=== PATIENT | male | born 1995 | race Caucasian/White ===

== ENCOUNTER 2019-01-18 17:16 | Emergency (ER) | payer SELFPAY | END 2019-01-18 19:48 | disposition left against medical advice (07) | LOC: ED 17:16 | DX: Z53.21 Procedure and treatment not carried out due to patient leaving prior to being seen by health care provider (principal) ==

== ENCOUNTER 2019-01-19 09:57 | Emergency (ER) | payer SELFPAY ==
[~2019-01-19] VITALS: Ht 172.7 cm; Wt 81.2 kg
[2019-01-19 10:18] VITALS: BP 151/100; Ht 172.7 cm; Wt 81.2 kg
[2019-01-19 13:33] LABS: microscopic required? NO
[2019-01-19 13:36] LABS: CALCIUM 9.4 mg/dL (8.5-10.1); CARBON DIOXIDE 26.1 mmol/L (21-32); CHLORIDE SERUM 103 mmol/L (98-107); GFR1 > 60 mL/min; GLUCOSE SERUM 104 mg/dL (74-106); POTASSIUM SERUM 3.9 mmol/L (3.5-5.1); SODIUM SERUM 141 mmol/L (136-145)
[2019-01-19 13:39] LABS: BASOPHIL % 0.3 % (0-2); PLATELET COUNT 222 x10^3mcL (130-400); RED CELL DISTRIBUTION WIDTH 13.5 % (11.5-14.5)
[2019-01-19 13:41] LABS: ALBUMIN 4.2 g/dL (3.4-5.0); ALKALINE PHOSPHATASE 68 U/L (46-116); ALT/SGPT 58 U/L (16-63); AST/SGOT 26 U/L (15-37); BILIRUBIN TOTAL 0.81 mg/dL (0.20-1.00); TOTAL PROTEIN, SERUM 7.8 g/dL (6.4-8.2)
[2019-01-19 13:56] LABS: urine erythrocyte NEGATIVE (NEGATIVE)
[2019-01-19 14:07] LABS: AMPHETAMINE QUAL UR NONE DETECTED (See below)
== END 2019-01-19 14:32 | disposition home or self-care (01) ==
LOC: ED 09:57
PROVIDERS: Specialist
DX: S20.211A Contusion of right front wall of thorax, initial encounter (principal); X58.XXXA Exposure to other specified factors, initial encounter; Y93.89 Activity, other specified; Y92.89 Other specified places as the place of occurrence of the external cause; Y99.8 Other external cause status
CPT/HCPCS: 36415; G0480